=== PATIENT | female | born 1990 ===

== ENCOUNTER → 2023-01-24 | Outpatient (CLI) | payer OTHER ==
[2023-01-24 15:27] LABS: BASOPHILS ABSOLUTE AUTO 0.05 K/mm3 (0.00-0.23); BASOPHILS PERCENT AUTO 1 % (0-2); EOSINOPHILS ABSOLUTE AUTO 0.31 K/mm3 (0.00-0.68); EOSINOPHILS PERCENT AUTO 4 % (0-6); Hematocrit 35.2 % (33.0-51.0); Hemoglobin 12.3 g/dL (11.5-16.0); IMMATURE GRAN ABSOLUTE AUTO 0.08 K/mm3 (0.00-0.10); IMMATURE GRAN PERCENT AUTO 1 % (0-1); LYMPHOCYTES ABSOLUTE AUTO 1.35 K/mm3 (0.84-5.20); LYMPHOCYTES PERCENT AUTO 16 % (21-46); MONOCYTES ABSOLUTE AUTO 0.61 K/mm3 (0.16-1.47); MONOCYTES PERCENT AUTO 7 % (4-13); Mean Corpuscular HGB 29.5 pg (26.0-34.0); Mean Corpuscular HGB Conc 34.9 g/dL (31.5-36.5); Mean Corpuscular Volume 84 fL (80-100); NEUTROPHILS ABSOLUTE AUTO 6.15 K/mm3 (1.96-9.15); NEUTROPHILS PERCENT AUTO 72 % (41-73); RDW Coefficient Variation 14.4 % (11.7-14.2); RDW Standard Deviation 44.1 fL (35.1-46.3); Red Blood Cell Count 4.17 M/mm3 (3.80-5.20); White Blood Cell Count 8.55 K/mm3 (4.00-11.30)
[2023-01-24 16:12] LABS: Mean Platelet Volume 11.6 fL (9.1-12.4); Platelet Count 217 K/mm3 (150-400)
== END ==
LOC: LAB 11:31 → LAB SHORT 11:31
PROVIDERS: Obstetrics & Gynecology
DX: O09.892 Supervision of other high risk pregnancies, second trimester (principal)
CPT/HCPCS: 82950; 85025

== ENCOUNTER → 2023-03-21 | Outpatient (CLI) | payer OTHER, BC | LOC: LAB 10:05 → LAB SHORT 10:05 | DX: O09.893 Supervision of other high risk pregnancies, third trimester (principal) | CPT/HCPCS: 87081; 87150 ==

== ENCOUNTER 2023-04-04 12:00 | Inpatient (IN) | payer BC, OTHER ==
[2023-04-04] VITALS (43 sets, daily range): BP systolic 126–207; BP diastolic 59–105
[~2023-04-04] VITALS: Ht 170.2 cm; Wt 120.0 kg
[2023-04-04] MEDS ORDERED: Misoprostol 200 MCG Tab PR SCH (12:35)
[2023-04-04] MEDS ORDERED: LR Oxytocin 20 Units 1,000 ML IV SCH ×2 (12:35→21:05)
[2023-04-04] MEDS ORDERED: Bupivacaine 0.5% HCl 5 MG/ML 30MLVIAL XX SCH (12:35)
[2023-04-04] MEDS ORDERED: Magnesium Sulf 2 GM/Water 50ML 50 ML IV SCH (12:35)
[2023-04-04] MEDS ORDERED: Magnesium Sulfate 500 ML IV SCH (12:35)
[2023-04-04] MEDS ORDERED: Lidocaine HCl 1% 30 ML SDV XX SCH (12:35)
[2023-04-04] MEDS ORDERED: Methylergonovine Maleate 0.2MG / ML 1ML Amp IM SCH (12:35)
[2023-04-04] MEDS ORDERED: Oxytocin 10 Unit / ML Vial IM SCH (12:35)
[2023-04-04] MEDS ORDERED: Calcium Gluconate 0.465 mEq/ml 10 ml Vial IV PRN (12:35)
[2023-04-04] MEDS ORDERED: Castor Oil 59.146 ML BTL TOP SCH (12:35)
[2023-04-04] MEDS ORDERED: Magnesium Sul 4 GM/Water100 ML 100 ML IV ONE (12:35)
[2023-04-04] MEDS ORDERED: Lactated Ringer's 1,000 ML IV SCH ×3 (12:35→13:25)
[2023-04-04] MEDS ORDERED: Bupivacaine HCl 2.5 MG/ML 10ML P/F Injection XX SCH (12:35)
[2023-04-04] MEDS ORDERED: Lactated Ringer's 1,000 ML IV PRN (12:35)
[2023-04-04] MEDS ORDERED: HydrALAZINE HCl 20 MG / ML 1ML Vial IV ONE (12:50)
[2023-04-04] MEDS ORDERED: HydrALAZINE HCl 20 MG / ML 1ML Vial IV SCH ×2 (12:50)
[2023-04-04] MEDS ORDERED: HydrALAZINE HCl 20 MG / ML 1ML Vial ONE (12:56)
[2023-04-04 13:15] LABS: BASOPHILS ABSOLUTE AUTO 0.04 K/mm3 (0.00-0.23); BASOPHILS PERCENT AUTO 1 % (0-2); EOSINOPHILS ABSOLUTE AUTO 0.18 K/mm3 (0.00-0.68); EOSINOPHILS PERCENT AUTO 2 % (0-6); Hematocrit 35.3 % (33.0-51.0); Hemoglobin 12.1 g/dL (11.5-16.0); IMMATURE GRAN ABSOLUTE AUTO 0.02 K/mm3 (0.00-0.10); IMMATURE GRAN PERCENT AUTO 0 % (0-1); LYMPHOCYTES ABSOLUTE AUTO 1.04 K/mm3 (0.84-5.20); LYMPHOCYTES PERCENT AUTO 14 % (21-46); MONOCYTES ABSOLUTE AUTO 0.47 K/mm3 (0.16-1.47); MONOCYTES PERCENT AUTO 6 % (4-13); Mean Corpuscular HGB 28.8 pg (26.0-34.0); Mean Corpuscular HGB Conc 34.3 g/dL (31.5-36.5); Mean Corpuscular Volume 84 fL (80-100); Mean Platelet Volume 10.4 fL (9.1-12.4); NEUTROPHILS ABSOLUTE AUTO 5.73 K/mm3 (1.96-9.15); NEUTROPHILS PERCENT AUTO 77 % (41-73); Platelet Count 218 K/mm3 (150-400); RDW Coefficient Variation 14.6 % (11.7-14.2); RDW Standard Deviation 44.1 fL (35.1-46.3); White Blood Cell Count 7.48 K/mm3 (4.00-11.30)
[2023-04-04] MEDS ORDERED: MAGNESIUM SULFATE IV STA (13:21)
[2023-04-04] MEDS ORDERED: NS IV STA (13:21)
[2023-04-04] MEDS ORDERED: ePHEDrine Sulfate 50 MG/ML 1ML Injection XX PRN (13:25)
[2023-04-04] MEDS ORDERED: FentaNYL 2mcg/ml-Bup 0.1% Epd 250 ML EPI PRN (13:25)
[2023-04-04] MEDS ORDERED: Magnesium Sulf 2 GM/Water 50ML 50 ML IV ONE (13:25)
[2023-04-04 13:28] LABS: Albumin, Blood 2.6 g/dL (3.4-5.0); Albumin/Globulin Ratio 0.8 (0.8-1.8); Bilirubin, Total 0.5 mg/dL (0.1-1.0); Bun/Creatinine Ratio 9.1 (12.0-20.0); Calcium, Blood 8.8 mg/dL (8.5-10.1); Creatinine, Blood 0.44 mg/dL (0.40-1.00); Globulin, Blood 3.3 g/dL (2.2-4.0); Potassium, Blood 2.6 mmol/L (3.5-5.5); Total Protein, Blood 5.9 g/dL (6.4-8.2)
[2023-04-04] MEDS ORDERED: Ampicillin Sod 2,000 MG in NS 100 ML IV ONE (13:40)
[2023-04-04] MEDS ORDERED: Labetalol HCL 5 MG/ML 4ML Injection (Single Dose) ONE ×2 (13:56→14:19)
[2023-04-04] MEDS ORDERED: Labetalol HCL 5 MG/ML 4ML Injection (Single Dose) IV ONE ×3 (14:00→15:30)
[2023-04-04 14:51] LABS: Creatinine, Urine Random 14.7 mg/dL (27.00-270.00); Protein, Urine Random 10.5 mg/dL (0.0-11.9); Protein/Creat Ratio, Ur Random 0.7
[2023-04-04 14:56] LABS: International Normalized Ratio 0.93; Prothrombin Time Results 9.8 Sec (9.7-11.5)
[2023-04-04] MEDS ORDERED: NIFEdipine 30 MG TabCR PO ONE ×2 (15:10→21:05)
[2023-04-04] MEDS ORDERED: Misoprostol 25 MCG Tab VAG PRN (15:15)
[2023-04-04] MEDS ORDERED: NIFEdipine 10 MG Cap PO ONE (15:40)
[2023-04-04] MEDS ORDERED: Ondansetron HCl 2 MG / ML 2ML Vial IV PRN ×2 (16:10→21:00)
[2023-04-04] MEDS ORDERED: CeFAZolin Sodium 3,000 MG in NS 100 ML IV SCH (17:10)
[2023-04-04] MEDS ORDERED: Metoclopramide HCl 5MG / ML 2ML Vial IV ONE (17:15)
[2023-04-04] MEDS ORDERED: Citric Acid/Sodium Citrate 30 ML BTL PO ONE (17:15)
[2023-04-04] MEDS ORDERED: Ropivacaine 0.5% HCl/Pf 5 MG/ML 20ML VIAL ONE (17:42)
[2023-04-04] MEDS ORDERED: Dexamethasone Sod Phos 10 MG/ML 1ML VIAL ONE (17:54)
[2023-04-04] MEDS ORDERED: Ketorolac Tromethamine 30mg Vial ONE (17:54)
[2023-04-04] MEDS ORDERED: FentaNYL Citrate 50 MCG/ML 2 ML Injection ONE (17:54)
[2023-04-04] MEDS ORDERED: Ondansetron HCl 2 MG / ML 2ML Vial ONE (17:54)
[2023-04-04] MEDS ORDERED: Lidocaine 2%-Epineph 1:200000 20 ML SDV ONE (18:28)
[2023-04-04 18:59] LABS: PCO2 Cord - Arterial 69.1 mmHg (40-50); PO2 Cord - Arterial < 16 mmHg (16-20); pH Cord - Arterial 7.23 (7.28-7.35)
[2023-04-04 19:01] LABS: PCO2 Cord - Venous 53.6 mmHg (40-50); PO2 Cord - Venous 19.2 mmHg (28-32); pH Umbilical Cord - Venous 7.32 (7.26-7.35)
[2023-04-04] MEDS ORDERED: Oxytocin 10 Unit / ML Vial ONE ×2 (19:08)
--- NOTE | 2023-04-04 19:12 | NUR ---
04/04/231911 Wonderly,Natalie Patino BABY BOY BORN BY PCS, VACUUM WAS USED TO ASSIST WITH DELIVERY OF BABY, APGARS NOT ASSINGED AT TIME OF , NB TRANSFERED TO [facility] FOR ADDITIONAL STABLIZATION. CORD BLOOD COLECTED AND SENT WITH RN, CORD GASES SENT WITH RT
[2023-04-04] MEDS ORDERED: Midazolam HCl 1MG / ML 2ML Vial ONE (19:13)
[2023-04-04] MEDS ORDERED: [UNRECOGNIZED DRUG - OTHER] UD SCH (20:00)
[2023-04-04] MEDS ORDERED: DiphenhydrAMINE HCL 25 MG Cap PO PRN (20:55)
[2023-04-04] MEDS ORDERED: Ketorolac Tromethamine 30mg Vial IV SCH (21:00)
[2023-04-04] MEDS ORDERED: Promethazine HCl 25 MG Tab PO PRN (21:00)
[2023-04-04] MEDS ORDERED: OxyCODONE HCL 5 MG TAB PO PRN (21:00)
[2023-04-04] MEDS ORDERED: Lanolin Cream TOP PRN (21:00)
[2023-04-04] MEDS ORDERED: Metoclopramide HCl 10 MG Tab PO PRN (21:05)
[2023-04-04] MEDS ORDERED: Simethicone 80 MG Chew PO PRN (21:05)
[2023-04-04] MEDS ORDERED: Rho(D) Immune Globulin 300 MCG / SYR IM ONE (21:05)
[2023-04-04] MEDS ORDERED: Misoprostol 200 MCG Tab PR PRN (21:05)
--- NOTE | 2023-04-04 21:11 | NUR ---
MAG RESTARTED PER ORDERS AT 2044.
[2023-04-05] VITALS (40 sets, daily range): BP systolic 104–179; BP diastolic 52–84
[2023-04-05] MEDS ORDERED: Ibuprofen 400 MG Tab PO SCH
[2023-04-05] MEDS ORDERED: Acetaminophen 500 MG Tab PO SCH
[2023-04-05] MEDS ORDERED: NIFEdipine 30 MG TabCR PO ONE ×2 (02:10→11:30)
[2023-04-05 05:30] LABS: BASOPHILS ABSOLUTE AUTO 0.02 K/mm3 (0.00-0.23); BASOPHILS PERCENT AUTO 0 % (0-2); EOSINOPHILS PERCENT AUTO 0 % (0-6); IMMATURE GRAN ABSOLUTE AUTO 0.05 K/mm3 (0.00-0.10); IMMATURE GRAN PERCENT AUTO 0 % (0-1); LYMPHOCYTES ABSOLUTE AUTO 0.71 K/mm3 (0.84-5.20); LYMPHOCYTES PERCENT AUTO 6 % (21-46); MONOCYTES ABSOLUTE AUTO 0.61 K/mm3 (0.16-1.47); MONOCYTES PERCENT AUTO 5 % (4-13); Mean Corpuscular HGB 29.1 pg (26.0-34.0); Mean Corpuscular HGB Conc 34.4 g/dL (31.5-36.5); Mean Corpuscular Volume 85 fL (80-100); Mean Platelet Volume 10.4 fL (9.1-12.4); NEUTROPHILS ABSOLUTE AUTO 10.95 K/mm3 (1.96-9.15); NEUTROPHILS PERCENT AUTO 89 % (41-73); Platelet Count 208 K/mm3 (150-400); RDW Coefficient Variation 14.5 % (11.7-14.2); RDW Standard Deviation 44.5 fL (35.1-46.3); Red Blood Cell Count 3.78 M/mm3 (3.80-5.20); White Blood Cell Count 12.34 K/mm3 (4.00-11.30)
[2023-04-05 05:55] LABS: Albumin, Blood 2.4 g/dL (3.4-5.0); Albumin/Globulin Ratio 0.8 (0.8-1.8); Bilirubin, Total 0.3 mg/dL (0.1-1.0); Bun/Creatinine Ratio 12.7 (12.0-20.0); Calcium, Blood 8.2 mg/dL (8.5-10.1); Creatinine, Blood 0.47 mg/dL (0.40-1.00); Globulin, Blood 3.2 g/dL (2.2-4.0); Potassium, Blood 2.5 mmol/L (3.5-5.5); Total Protein, Blood 5.6 g/dL (6.4-8.2)
[2023-04-05] MEDS ORDERED: Potassium Chloride 20 MEQ TabCR PO ONE ×4 (06:45→21:00)
[2023-04-05] MEDS ORDERED: NIFEdipine 60 MG TabCR PO SCH (09:00)
[2023-04-05] MEDS ORDERED: Polyethylene Glycol 3350 17 gm PO SCH (09:00)
[2023-04-05] MEDS ORDERED: NIFEdipine 90 MG TabCR PO SCH (09:00)
[2023-04-05] MEDS ORDERED: Prenatal Vit/FE Fumarate/FA 1 Tab PO SCH (09:00)
[2023-04-05 10:31] LABS: Bun/Creatinine Ratio 8.8 (12.0-20.0); Calcium, Blood 7.8 mg/dL (8.5-10.1); Creatinine, Blood 0.46 mg/dL (0.40-1.00); Potassium, Blood 2.4 mmol/L (3.5-5.5)
--- NOTE | 2023-04-05 11:30 | NUR ---
DR. JOHNSON GAVE ORDERS FOR PT'S CHUNG CATHETER TO STAY IN UNTIL MAGNESIUM THERAPY HAS FINISHED.
[2023-04-05] MEDS ORDERED: FentaNYL Citrate 50 MCG/ML 2 ML Injection IV PRN (15:10)
[2023-04-05] MEDS ORDERED: FentaNYL Citrate 50 MCG/ML 2 ML Injection ONE (15:11)
[2023-04-05 15:43] LABS: BASOPHILS ABSOLUTE AUTO 0.02 K/mm3 (0.00-0.23); BASOPHILS PERCENT AUTO 0 % (0-2); EOSINOPHILS ABSOLUTE AUTO 0.05 K/mm3 (0.00-0.68); EOSINOPHILS PERCENT AUTO 1 % (0-6); Hematocrit 29.4 % (33.0-51.0); Hemoglobin 10.1 g/dL (11.5-16.0); IMMATURE GRAN ABSOLUTE AUTO 0.03 K/mm3 (0.00-0.10); IMMATURE GRAN PERCENT AUTO 0 % (0-1); LYMPHOCYTES PERCENT AUTO 15 % (21-46); MONOCYTES ABSOLUTE AUTO 0.72 K/mm3 (0.16-1.47); MONOCYTES PERCENT AUTO 8 % (4-13); Mean Corpuscular HGB Conc 34.4 g/dL (31.5-36.5); Mean Corpuscular Volume 85 fL (80-100); Mean Platelet Volume 10.4 fL (9.1-12.4); NEUTROPHILS ABSOLUTE AUTO 6.42 K/mm3 (1.96-9.15); NEUTROPHILS PERCENT AUTO 75 % (41-73); Platelet Count 211 K/mm3 (150-400); RDW Coefficient Variation 14.6 % (11.7-14.2); RDW Standard Deviation 45.1 fL (35.1-46.3); Red Blood Cell Count 3.48 M/mm3 (3.80-5.20); White Blood Cell Count 8.54 K/mm3 (4.00-11.30)
[2023-04-05] MEDS ORDERED: Potassium Chl 20MEQ/Water100ML 100 ML IV STA (16:48)
--- NOTE | 2023-04-05 17:55 | NUR ---
AROUND 1500 TODAY PT REPORTED 7/10 PAIN IN HER LOWER ABDOMINAL INCISIONAL AREA THAT CAME ON ABRUPTLY. PT BECAME DIAPHORETIC AND HER BLOOD PRESSURE WAS SYSTOLIC LOW 100'S. TEMPURATURE WAS WNL AND HER PULSE WAS IN THE 70'S. ABDOMEN WAS NON DISTENDED AND TENDER DIRECTLY OVER HER INCISION BUT NOT IN UPPER QUADRENTS OR AROUND HER INCISION. I CALLED MY CHARGE NURSE MARICEL DEWEY TO BEDSIDE FOR ADDITIONAL ASSESSMENT AND ALSO CONTACTED MY PT'S PROVIDER DR. JC AND REPORTED THE INCIDENT TO HER. DR. JC ORDERED CBC,BMP, CYCLIC BP'S Q 15 AND MONITORING OF HER ABDOMEN Q [address] JC WAS CONTACTED AT 1500 AND REPORTED SHE WOULD COME IN TO PHYSICALLY ASSESS PT AT 1600. WILL CONTINUE TO MONITOR AND WILL CONTACTED PROVIDER WITH ANY ADDITIONAL CHANGES.
[2023-04-05 19:42] LABS: Bun/Creatinine Ratio 6.8 (12.0-20.0); Calcium, Blood 7.7 mg/dL (8.5-10.1); Creatinine, Blood 0.44 mg/dL (0.40-1.00); Potassium, Blood 2.8 mmol/L (3.5-5.5)
[2023-04-05 19:45] LABS: Bun/Creatinine Ratio 5.9 (12.0-20.0); Calcium, Blood 7.7 mg/dL (8.5-10.1); Creatinine, Blood 0.51 mg/dL (0.40-1.00); Potassium, Blood 2.4 mmol/L (3.5-5.5)
--- NOTE | 2023-04-05 20:00 | NUR ---
PT IS NOW PASSING FLATUS, SO DIET MAY BE ADVANCED TO REGULAR PER DR JC.
--- NOTE | 2023-04-05 20:30 | NUR ---
ORDERS CLARIFIED WITH DR JC. WILL LEAVE CHUNG IN OVERNIGHT.
[2023-04-05] MEDS ORDERED: Docusate Sodium 100 MG Cap PO SCH (21:00)
[2023-04-05 22:20] LABS: Bun/Creatinine Ratio 6.9 (12.0-20.0); Calcium, Blood 7.8 mg/dL (8.5-10.1); Creatinine, Blood 0.43 mg/dL (0.40-1.00)
--- NOTE | 2023-04-05 23:33 | NUR ---
DR JC UPDATED WITH 12-LEAD EKG AND K LEVEL. WILL RECHECK BOTH IN AM.
[2023-04-06] VITALS (21 sets, daily range): BP systolic 123–171; BP diastolic 58–81
--- NOTE | 2023-04-06 01:18 | NUR ---
DR JC UPDATED WITH ELEVATED BP. ORDER FOR PO NIFEDIPINE 30MG XL NOW AND REPEAT BP IN 30 MIN.
[2023-04-06] MEDS ORDERED: NIFEdipine 30 MG TabCR PO ONE (01:25)
--- NOTE | 2023-04-06 02:10 | NUR ---
DR JC UPDATED WITH REPEAT BP. WILL RECHECK IN 30 MIN AND IF STILL SEVERE RANGE, GIVE LABETALOL 20MG IV X1.
[2023-04-06] MEDS ORDERED: Labetalol HCL 5 MG/ML 4ML Injection (Single Dose) IV ONE (02:15)
--- NOTE | 2023-04-06 08:28 | NUR ---
TELEMETRY SECURITY SHIFT SUPERVISOR IN PCU CALLED AND TELEPHONE UPDATE GIVEN. NO ADVERSE RHYTHM NOTED OVERNIGHT. WILL CONTINUE TO MONITOR.
[2023-04-06] MEDS ORDERED: Potassium Chloride 20 MEQ TabCR PO ONE ×3 (09:50→20:40)
[2023-04-06] MEDS ORDERED: Labetalol HCL 100 MG TAB PO SCH (11:00)
[2023-04-06] MEDS ORDERED: Calcium Carbonate 500 MG Tab Chew PO PRN (11:10)
[2023-04-07] VITALS (13 sets, daily range): BP systolic 140–171; BP diastolic 69–83
--- NOTE | 2023-04-07 01:49 | NUR ---
2034: UPDATED DR JC ABOUT PATIENTS POTASSIUM LEVEL RESULT OF 3.2 AND INCREASED BP. TELEPHONE ORDER OF POTASSIUM 40 MG NOW, REPEAT BMP IN AM, TELE OVERNIGHT. NIFEDEPINE AND LABETOLOL ORDERED IN THE AM 04/07/23, ORDER IS TO GIVE NIFEDEPINE BUT HOLD LABETOLOL IF BP IS BELOW 120/80.
[2023-04-07 05:41] LABS: Bun/Creatinine Ratio 12.5 (12.0-20.0); Calcium, Blood 8.3 mg/dL (8.5-10.1); Creatinine, Blood 0.56 mg/dL (0.40-1.00); Potassium, Blood 2.9 mmol/L (3.5-5.5)
--- NOTE | 2023-04-07 05:57 | NUR ---
0513: BP WAS TAKEN AFTER PATIENT STATED THAT SHE JUST USED THE BATHROOM AND CHANGED [employer] DIAPER.
[2023-04-07] MEDS ORDERED: Potassium Chloride 40 MEQ in NS 250 ML IV ONE (08:35)
[2023-04-07] MEDS ORDERED: Potassium Chloride 20 MEQ TabCR PO ONE ×2 (09:00→20:00)
[2023-04-07 14:58] LABS: Magnesium, Blood 1.7 mg/dL (1.6-2.4); Potassium, Blood 3.3 mmol/L (3.5-5.5)
[2023-04-08] VITALS (15 sets, daily range): BP systolic 139–177; BP diastolic 72–88
[2023-04-08 05:41] LABS: Bun/Creatinine Ratio 17.1 (12.0-20.0); Calcium, Blood 8.4 mg/dL (8.5-10.1); Creatinine, Blood 0.53 mg/dL (0.40-1.00)
--- NOTE | 2023-04-08 07:33 | NUR ---
B/P NOTED TO BE ELEVATED. PT REPORTS SHE JUST GOT BACK TO BED AND COMPLAINS OF PAIN 4/10. PAIN RX GIVEN. PT SITTING UP IN BED AND GETTING READY TO PUMP. WILL REEVALUATE B/P. PT REPORTS SWELLING IMPROVING. PT WEARING COMPRESSION STOCKINGS. DENIES H/A OR ABD PAIN. PT UP PRESLEY SELF CARE. DENIES FEELING LIGHT HEADED. PT IRRITABLE ABOUT THE TELE AND ONE OF HER IV SITES. DISCUSSED LAB VALUES FROM THIS AM'S LABS. DISCUSSED TALKING WITH PROVIDER WHEN SHE ROUNDS ABOUT PLAN OF CARE.
[2023-04-08] MEDS ORDERED: Magnesium Sulf 2 GM/Water 50ML 50 ML IV ONE (08:40)
[2023-04-08] MEDS ORDERED: Lactated Ringer's 1,000 ML IV ONE (08:44)
[2023-04-08] MEDS ORDERED: Potassium Chloride 20 MEQ TabCR PO ONE ×2 (09:00→14:00)
--- NOTE | 2023-04-08 11:39 | NUR ---
1000: PEDS IN WITH PT AND DISCUSSING NEED TO SUPPLEMENT NB. PT TEARFUL AND FRUSTRATED. ANXIOUS TO GO HOME BUT DISCUSSING NEED FOR MORE MONITORING OF NB AND MOM'S B/P ELEVATED. PT TEARFUL AND S.O. AND PT NOT AGREEING ON HOW TO SUPPLEMENT BABY SO PT SEEMS A LITTLE MORE FRUSTATED. PT REASSURED AND ENCOURAGED TO NOT STRESS. DISCUSSED IT DOESN'T MATTER HOW BABY GETS THE VOLUME IN LONG BABY DOES. BOTH PARENTS REASSURED. THEY ARE EXPERIENCED PARENTS PRESLEY NB CARE VERY WELL, JUST NEEDING TO ADD VOLUME TO NB'S FEED. BOTH VERBALIZE UNDERSTANDING
[2023-04-08] MEDS ORDERED: Labetalol HCL 100 MG TAB PO ONE (12:40)
[2023-04-08] MEDS ORDERED: Labetalol HCL 100 MG TAB PO SCH (12:40)
--- NOTE | 2023-04-08 12:51 | NUR ---
DR. JOHNSON AT BEDSIDE DISCUSSING PT'S PLAN OF CARE. PT TEARFUL BUT UNDERSTANDING.
--- NOTE | 2023-04-08 14:49 | NUR ---
1435: HOLDING KDUR UNTIL I GET CONFIRMATION FROM DR ON THIS ORDER.
--- NOTE | 2023-04-08 14:50 | NUR ---
1440: PT UP AMBULATING IN THE ROOM. APPEARS MUCH MORE RELAXED AND COMFORTABLE WITH STAY NOW THAT ABLE TO BF NB WELL. PT REQUEST TO TAKE A NAP. RN WILL NOT DISTURB PT UNTIL 1600 FOR ROUTINE VS PER PT REQUEST UNLESS PT CALLS. PT SMILING AND PRESLEY NB AND SELF CARE WELL.
[2023-04-09] VITALS (7 sets, daily range): BP systolic 141–174; BP diastolic 73–101
[2023-04-09] MEDS ORDERED: Labetalol HCL 100 MG TAB PO SCH ×2 (05:00→16:00)
[2023-04-09 05:32] LABS: Bun/Creatinine Ratio 23.9 (12.0-20.0); Calcium, Blood 8.8 mg/dL (8.5-10.1); Creatinine, Blood 0.55 mg/dL (0.40-1.00); Potassium, Blood 3.3 mmol/L (3.5-5.5)
[2023-04-09] MEDS ORDERED: Labetalol HCL 100 MG TAB PO ONE (08:25)
[2023-04-09] MEDS ORDERED: Potassium Chloride 20 MEQ TabCR PO SCH (09:00)
== END 2023-04-09 15:00 | disposition home or self-care (01) | DRG 788 ==
LOC: BC 12:00 → OBS 12:00 → BC 12:15
PROVIDERS: Family Medicine; Obstetrics & Gynecology; ADMIT Obstetrics & Gynecology
PROC: 10D00Z1 Extraction of Products of Conception, Low, Open Approach (ICD-10-PCS; principal; 2023-04-04 17:30)
DX: O14.13 Severe pre-eclampsia, third trimester (principal); Z37.0 Single live birth; Z3A.38 38 weeks gestation of pregnancy; O99.214 Obesity complicating childbirth; O12.04 Gestational edema, complicating childbirth; O99.284 Endocrine, nutritional and metabolic diseases complicating childbirth; E87.6 Hypokalemia; Z31.82 Encounter for Rh incompatibility status; O99.892 Other specified diseases and conditions complicating childbirth; R03.0 Elevated blood-pressure reading, without diagnosis of hypertension
CPT/HCPCS: 36415; 80048; 80053; 82570; 82803; 83615; 83735; 84132; 84156; 85025; 85384; 85610; 85730; 86850; 86870; 86900; 86901; 86920; 93005; 93010; A9270; J0360; J0690; J1100; J1885; J2250; J2405; J2590; J2765; J2795; J3010; J3475; J3480; J7040; J7050; J7120

== ENCOUNTER → 2024-05-11 | Outpatient (CLI) | payer OTHER ==
[2024-05-15 06:34] LABS: HPV HIGH RISK BY TMA Not Detected; HPV SOURCE Cervical
== END | disposition home or self-care (01) ==
LOC: LAB SHORT 14:10 → LAB 14:10
PROVIDERS: Advanced Practice Midwife
DX: Z01.419 Encounter for gynecological examination (general) (routine) without abnormal findings (principal)
CPT/HCPCS: 87624; G0123